=== PATIENT | male | born 2005 | race Caucasian/White ===

== ENCOUNTER 2023-05-14 16:50 | Inpatient (IN) ==
[2023-05-14] MEDS ORDERED: ONDANSETRON INJ 2 MG/ML 2 ML VIAL IV STA (17:25)
[2023-05-14] MEDS ORDERED: SODIUM CHLORIDE 0.9% 500 ML IV SCH (17:30)
--- NOTE | 2023-05-14 17:44 | Emergency Department Note ---
Impression & Plan Drug overdose, Depression with suicidal ideation, Suicide gesture ED Provider Note NAME: TAVO BRITTON AGE: 17 SEX: M : 2005 ARRIVES VIA: Ambulance INFORMANT: Patient, police ED PROVIDER(S): Elvis Quinteros DO CHIEF COMPLAINT: Overdose HPI: The patient is a 17-year-old male who presented to the emergency department for an evaluation of overdose and suicidal ideation with gesture. The patient states that he has been having suicidal ideation since yesterday. He took an overdose of his medication. The patient has a Lexapro at home. He has varying doses. He started at 4:15 PM and started taking 1 pill every minute. This ended at approximately 4:45 PM. The patient thinks he took a total of 30 tablets. This was calculated to be 425 mg total. Again the patient's last dose that he took was at 4:45 PM. The patient has had episodes of nausea vomiting. He called 911 and arrived at the emergency department with police. The patient states he has a history of cutting in the past but never anything this serious. ROS: See above HPI for pertinent positives & negatives. A total of 10 systems reviewed and were otherwise negative. PAST MEDICAL HISTORY: See Below PAST SURGICAL HISTORY: See Below FAMILY HISTORY: See Below SOCIAL HISTORY: See Below HOME MEDICATIONS: See Below ALLERGIES: See Below VITALS: See Below PHYSICAL EXAMINATION: GENERAL: The patient is awake and alert. He appears guarded. EYES: The conjunctivae are clear. The pupils are round and reactive. EARS, NOSE, MOUTH AND THROAT: The nose is without any evidence of any deformity. NECK: The neck is nontender and supple. RESPIRATORY: Normal respiratory effort is noted there is no evidence of wheezing rhonchi or rales CARDIOVASCULAR: Regular rate and rhythm noted there no murmurs rubs or gallops normal S1 normal S2. GASTROINTESTINAL: The abdomen is soft. Abdomen is nontender MUSCULOSKELETAL/EXTREMITIES: There is no evidence of gross deformity full range of motion is noted in the hips and shoulders. SKIN: There is no obvious evidence of any rash. There are no petechiae, pallor or cyanosis noted. NEUROLOGIC: Patient is awake alert and oriented x3 strength is symmetric patellar reflexes are 2+ bilaterally PSYCH: The patient makes poor eye contact mostly evaluation. His affect is very flat. The patient is currently admitting that he took the medications in an attempt to kill himself. MEDICAL DECISION MAKING: The patient is a 17-year-old male who presented to the emergency department after taking multiple doses of Lexapro in an attempt to harm himself. The patient presented with episodes of emesis. He was observed in the emergency department and had multiple reevaluations. I discussed the patient's laboratory studies with him as well as his parents. Given the patient's findings at this time and at the recommendation of poison control [facility] have agreed to evaluate the patient in the emergency department for further management and disposition. The patient may require further cardiac monitoring as well as seizure precautions. Triage Nursing notes reviewed. Prior medical records reviewed Vital Signs: reviewed and remarkable for no significant abnormalities Differential diagnosis: Mood disorder, infection, hypoglycemia, electrolyte abnormalities, cardiac sources, intracerebral event, toxicologic, trauma, neurologic, as well as other pathologies. ER treatment provided: See below Diagnostics interpreted by me: ECG: EKG was obtained in the emergency department. My interpretation is normal sinus rhythm at 83 bpm. There is no ectopy. There is no acute ST segment abnormalities noted. QRS duration was 100 ms. QTc was 423 ms. No previous tracing was available. Cardiac Monitoring: An order was placed for continuous cardiac monitoring. The monitor shows a rate of 87 bpm with sinus rhythm. Laboratory studies: As stated above and show below. Imaging studies: See below. Consultation(s): This case was discussed with the Poison Control Center. Recommendations were followed This case was discussed with Dr. Chun who [facility] Past Med/Surg History Social History Smoking Status: Never smoker Preferred Language: Armenian Feels Safe at Home: Yes Allergies Allergies Allergy/AdvReac Type Severity Reaction Status Date / Time No Known Allergies Allergy Unverified 05/14/23 17:49 Home Meds Home Medications Medication Instructions Recorded Confirmed escitalopram oxalate 20 mg tablet 20 mg PO DAILY 05/14/23 05/14/23 (Lexapro) Results & Data (ED) Vital Signs Vital Signs - 24 hr 05/14/23 16:45 05/14/23 16:51 05/14/23 17:25 Temperature 37.3 C Temperature Source Oral Pulse Rate 89 77 Pulse Rate from SpO2 Sensor Pulse Rhythm Regular Irregular Pulse Strength Normal Respiratory Rate 18 Respiratory Effort / Characteristics Non-Labored Spontaneous Respiratory Depth Normal Respiratory Pattern Regular Blood Pressure 124/81 Blood Pressure Mean 95 Pulse Oximetry 99 97 97 Oxygen Delivery Method Room Air Room Air Room Air Sepsis Recent Fever Within 48 Hours No Sepsis New/Unexplained Change in Mental Status No Sepsis Action Taken by Nursing No Action Required 05/14/23 17:30 05/14/23 17:30 05/14/23 17:30 Temperature Temperature Source Pulse Rate 85 82 Pulse Rate from SpO2 Sensor 83 Pulse Rhythm Pulse Strength Respiratory Rate 24 Respiratory Effort / Characteristics Respiratory Depth Respiratory Pattern Blood Pressure 132/77 Blood Pressure Mean 85 Pulse Oximetry 96 Oxygen Delivery Method Room Air Sepsis Recent Fever Within 48 Hours Sepsis New/Unexplained Change in Mental Status Sepsis Action Taken by Nursing 05/14/23 18:00 05/14/23 18:00 05/14/23 18:30 Temperature Temperature Source Pulse Rate 86 Pulse Rate from SpO2 Sensor 87 Pulse Rhythm Pulse Strength Respiratory Rate 16 Respiratory Effort / Characteristics Respiratory Depth Respiratory Pattern Blood Pressure 118/73 121/72 Blood Pressure Mean 102 87 Pulse Oximetry 98 Oxygen Delivery Method Room Air Sepsis Recent Fever Within 48 Hours Sepsis New/Unexplained Change in Mental Status Sepsis Action Taken by Nursing 05/14/23 18:30 05/14/23 19:00 05/14/23 19:00 Temperature Temperature Source Pulse Rate 89 87 Pulse Rate from SpO2 Sensor 87 87 Pulse Rhythm Pulse Strength Respiratory Rate 16 19 Respiratory Effort / Characteristics Respiratory Depth Respiratory Pattern Blood Pressure 120/75 Blood Pressure Mean 92 Pulse Oximetry 98 96 Oxygen Delivery Method Room Air Room Air Sepsis Recent Fever Within 48 Hours Sepsis New/Unexplained Change in Mental Status Sepsis Action Taken by Custodial Medications Current Medication List: was personally reviewed by me Laboratory Data Attestation: I reviewed the patient's lab results. 05/14/23 17:20 05/14/23 17:20 Lab Results 05/14/23 05/14/23 Range/Units 17:20 19:20 WBC 6.76 (4.8-10.8) K/ul RBC 5.44 (4.70-6.10) M/uL Hgb 15.8 (14.0-18.0) g/dl Hct 47.2 (42.0-52.0) % MCV 86.8 (80.0-100.0) fL MCH 29.0 (25.0-34.0) pg MCHC 33.5 (32.0-36.0) g/dL RDW Std Deviation 37.2 (36.4-46.3) fL RDW Coeff of Teresa 11.7 (11.5-14.5) % Plt Count 241 (130-400) K/uL MPV 9.9 (9.4-12.4) fL Immature Gran % (Auto) 0.4 % Neut % (Auto) 48.5 % Lymph % (Auto) 41.1 % [place] % (Auto) 7.8 % Eos % (Auto) 1.6 % Baso % (Auto) 0.6 % Neut # (Auto) 3.27 (1.40-6.50) K/uL Lymph # (Auto) 2.78 (1.20-3.40) K/uL [place] # (Auto) 0.53 (0.11-0.59) K/uL Eos # (Auto) 0.11 (0.00-0.50) K/uL Baso # (Auto) 0.04 (0.00-0.20) K/uL Immature Gran # (Auto) 0.03 (0.01-0.20) K/uL PT 10.6 (9.0-12.0) Seconds INR 1.0 (0.9-1.1) APTT 25 (21-31) Seconds PTT Ratio 0.9 Sodium 136 (136-145) mmol/L Potassium 3.9 (3.5-5.1) mmol/L Chloride 102 (98-107) mmol/L Carbon Dioxide 25 (21-32) mmol/L Anion Gap 9 (3-11) BUN 16 (6-23) mg/dl Creatinine 0.83 (0.6-1.4) mg/dl Est Cr Clr Drug Dosing 176.2 ml/min Est GFR ( Amer) 147.8 ml/min Est GFR (Non-Af Amer) 127.6 ml/min BUN/Creatinine Ratio 19.3 (10-20) Glucose 95 (70-99(Fasting)) mg/dl Calcium 9.3 (8.6-10.3) mg/dl Magnesium 2.0 (1.7-2.4) mg/dl Total Bilirubin 0.4 (0.2-1.0) mg/dl AST 18 (13-39) U/L ALT 18 (7-52) U/L Alkaline Phosphatase 56 (34-104) U/L Total Creatine Kinase 105 (30-223) U/L Troponin I High Sens < 2.3 (0-20) pg/ml Total Protein 7.5 (6.0-8.3) gm/dl Albumin 4.5 (3.4-5.0) gm/dl Globulin 3.0 (2.5-4.0) gm/dl Albumin/Globulin Ratio 1.5 (0.9-2) Lipase 32 (11-82) U/L Urine Color Yellow Urine Appearance Clear (Clear) Urine pH 6.0 (4.5-7.5) Ur Specific [place] 1.016 (1.000-1.030) Urine Protein Negative (Negative) Urine Glucose (UA) Negative (Negative) Urine Ketones Negative (Negative) Urine Blood Negative (Negative) Urine Nitrite Negative (Negative) Urine Bilirubin Negative (Negative) Urine Urobilinogen Negative (Negative) Ur Leukocyte Esterase Negative (Negative) Salicylates < 3.0 L (3.0-30) mg/dl Acetaminophen < 3 L (10-30) ug/ml Ethyl Alcohol mg/dL < 10.0 (<10.0) mg/dl SARS-CoV-2, RNA, NAAT NEGATIVE (NEGATIVE) Administered Medications Discontinued Medications Sodium Chloride (Nss) 500 mls @ 999 mls/hr IV .Q31M GOLDIE Stop: 05/14/23 18:00 Last Infusion: 05/14/23 18:04 Dose: Infused Documented By: Admin: 05/14/23 17:33 Dose: 999 mls/hr Documented By: RANJANA Ondansetron HCl (Ondansetron Inj 2 Mg/Ml 2 Ml Vial) 4 mg IV NOW STA Stop: 05/14/23 17:26 Last Admin: 05/14/23 17:33 Dose: 4 mg Documented By: RANJANA Discharge Plan Visit Data Chief Complaint: Overdose (Intentional) Stated Complaint: OVERDOSE, MHID ED Provider: Elvis Quinteros Discharge Problem: Drug overdose, Depression with suicidal ideation, Suicide gesture Patient Disposition: Being Evaluated by Hospitalist Forms Stand Alone Forms: [facility], Suicide Prevention Resources Prescriptions Prescriptions: No Action escitalopram oxalate [Lexapro] 20 mg Tablet 20 mg PO DAILY Referrals Referrals: PCP,NO [Primary Care Provider] - Discharge Problem: Drug overdose Qualifiers: Encounter type: initial encounter Injury intent: intentional self-harm Q ualified Code(s): T50.902A - Poisoning by unspecified drugs, medicaments and biological substances, intentional self-harm, initial encounter Suicide gesture Qualifiers: Encounter type: initial encounter Qualified Code(s): X83.8XXA - Intentional self-harm by other specified means, initial encounter
[2023-05-14 17:59] LABS: Basophils # (auto) 0.04 K/uL (0.00-0.20); Basophils % (auto) 0.6 %; Eosinophils # (auto) 0.11 K/uL (0.00-0.50); Eosinophils % (auto) 1.6 %; Hematocrit (blood only) 47.2 % (42.0-52.0); Hemoglobin 15.8 g/dl (14.0-18.0); Immature Granulocytes # (auto) 0.03 K/uL (0.01-0.20); Immature Granulocytes % (auto) 0.4 %; Lymphocytes # (auto) 2.78 K/uL (1.20-3.40); Lymphocytes % (auto) 41.1 %; Mean Corpuscular Hgb Conc 33.5 g/dL (32.0-36.0); Mean Corpuscular Volume 86.8 fL (80.0-100.0); Mean Platelet Volume 9.9 fL (9.4-12.4); Monocytes # (auto) 0.53 K/uL (0.11-0.59); Monocytes % (auto) 7.8 %; Neutrophils # (auto) 3.27 K/uL (1.40-6.50); Neutrophils % (auto) 48.5 %; Platelet Count 241 K/uL (130-400); RDW Coefficient of Variation 11.7 % (11.5-14.5); RDW Standard Deviation 37.2 fL (36.4-46.3); Red Blood Count 5.44 M/uL (4.70-6.10); White Blood Count 6.76 K/ul (4.8-10.8)
[2023-05-14 18:18] LABS: Acetaminophen < 3 ug/ml (10-30); Salicylate < 3.0 mg/dl (3.0-30)
[2023-05-14 18:31] LABS: Partial Thromboplastin Ratio 0.9; Partial Thromboplastin Time 25 Seconds (21-31); Prothrombin Time 10.6 Seconds (9.0-12.0)
[2023-05-14 18:34] LABS: Albumin Level 4.5 gm/dl (3.4-5.0); Anion Gap 9 (3-11); Bilirubin,Total 0.4 mg/dl (0.2-1.0); Calcium 9.3 mg/dl (8.6-10.3); Carbon Dioxide 25 mmol/L (21-32); Chloride 102 mmol/L (98-107); Potassium 3.9 mmol/L (3.5-5.1); Sodium 136 mmol/L (136-145)
[2023-05-14 18:40] LABS: Alanine Aminotransferase 18 U/L (7-52); Albumin Globulin Ratio 1.5 (0.9-2); Alkaline Phosphatase 56 U/L (34-104); Aspartate Aminotransferase 18 U/L (13-39); BUN Creatinine Ratio 19.3 (10-20); Blood Urea Nitrogen 16 mg/dl (6-23); Creatine Kinase 105 U/L (30-223); Creatinine Clr Calc Pharmacy 176.2 ml/min; Est GFR (African American) 147.8 ml/min; Est GFR (Non-African American) 127.6 ml/min; Glucose 95 mg/dl (70-99(Fasting)); Lipase 32 U/L (11-82); Total Protein 7.5 gm/dl (6.0-8.3)
[2023-05-14 18:45] LABS: Troponin I High Sensitivity < 2.3 pg/ml (0-20)
[2023-05-14 19:44] LABS: Appearance Urine Clear (Clear); Bilirubin Urine Negative (Negative); Blood Urine Negative (Negative); Color Urine Yellow; Glucose Urine UA Negative (Negative); Ketones Urine Negative (Negative); Leukocyte Esterase Urine Negative (Negative); Nitrite Urine Negative (Negative); Protein Urine Negative (Negative); Specific Gravity Urine 1.016 (1.000-1.030); Urobilinogen Urine Negative (Negative)
--- NOTE | 2023-05-14 20:20 | History & Physical Report ---
Date of Service May 14, 2023 Assessment & Plan (1) Suicide gesture: (2) Depression with suicidal ideation: (3) SSRI overdose: Plan Intentional SSRI overdose/depression with suicidal ideation/suicide gesture- Admit to hospitalist service to monitored bed Hold any further Lexapro dosing No signs of ectopy on examination and no prolongation of QT interval on EKG He is status post 500 cc normal saline in the ED Based on NSS + KCl 20 mill equivalents at 80 mL/h x 1 L Zofran 4 mg IV every 6 hours as needed for One-to-one observation Consult psychiatry History of Present Illness Chief Complaint: The patient is brought to the emergency department via ambulance for evaluation of suicidal ideation after having taken an intentional overdose of 30 Lexapro 20 mg tablets over a 30-minute interval from 4: 15-4:45 PM this afternoon Primary Care Provider: SEN PCP The patient is a 17-year-old male with a past medical history of depression, who was brought to the emergency department after a suicide attempt where he took Lexapro 20 mg tablets, 1 every minute from 4:15 to 4:45 PM for total of 30 ingested. The patient's main complaint in the emergency department is stomach upset, and reports a few episodes of nausea and vomiting. 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 Physical Required: No Beliefs That Will Affect Care: None Current Living Situation: Other Current Living Situation Comment: With roomates at U Feels Safe at Home: Yes Assistive Devices: Glasses Review of Systems Review of Systems: The patient denies chest pain, palpitations, shortness of breath, dyspnea on exertion, cough, lower extremity swelling, sore throat, fevers, chills, sweats, diarrhea , constipation, blood in urine or stool, dysuria, urinary frequency or urgency, lightheadedness, dizziness, headache, memory loss, loss of consciousness, rash, abnormal bruising or bleeding, imbalance, focal or generalized weakness, numbness or tingling in arms or legs, generalized arthralgias or myalgias, back or neck pain, or night sweats. The review of systems is otherwise negative other than for that already noted above, and at least 10 systems have been reviewed. Physical Exam Physical Exam: The patient is awake, alert and oriented 3, well developed and well nourished, normocephalic and atraumatic, lying in bed and in no acute distress. HEENT--PERRL, EOMI, mucous membranes and oropharynx normal. Neck--supple. No JVD. No bruits. Thyroid normal, trachea midline, no adenopathy. Heart--normal S1 and S2. No murmurs, rubs or gallops. Lungs--clear bilaterally, no respiratory distress, no accessory muscle use. Abdomen--normal bowel sounds and soft. Nontender. Nondistended, no hernias or masses, no organomegaly. Extremities--no cyanosis or clubbing. No edema. Dermatologic--normal skin turgor, normal color, no abnormal lymph nodes, no rash. Neurologic--cranial nerves II through XII grossly intact. Rheumatologic--normal range of motion. Psychiatric--normal affect. Results & Data Results & Data Vital Signs (Past 12 Hours) Vital Signs Temp Pulse Resp BP Pulse Ox O2 Del Method 05/14/23 19:00 87 19 96 Room Air 05/14/23 19:00 120/75 05/14/23 18:30 89 16 98 Room Air 05/14/23 18:30 121/72 05/14/23 18:00 86 16 98 Room Air 05/14/23 18:00 118/73 05/14/23 17:30 82 24 96 Room Air 05/14/23 17:30 132/77 05/14/23 17:30 85 05/14/23 17:25 77 97 Room Air 05/14/23 16:51 97 Room Air 05/14/23 16:45 37.3 C 89 18 124/81 99 Room Air Laboratory Results Laboratory Results WBC 6.76 K/ul (4.8-10.8) 05/14/23 17:20 RBC 5.44 M/uL (4.70-6.10) 05/14/23 17:20 Hgb 15.8 g/dl (14.0-18.0) 05/14/23 17:20 Hct 47.2 % (42.0-52.0) 05/14/23 17:20 MCV 86.8 fL (80.0-100.0) 05/14/23 17:20 MCH 29.0 pg (25.0-34.0) 05/14/23 17:20 MCHC 33.5 g/dL (32.0-36.0) 05/14/23 17:20 RDW Std Deviation 37.2 fL (36.4-46.3) 05/14/23 17: RDW Coeff of Teresa 11.7 % (11.5-14.5) 05/14/23 17: Plt Count 241 K/uL (130-400) 05/14/23 17:20 MPV 9.9 fL (9.4-12.4) 05/14/23 17:20 Immature Gran % (Auto) 0.4 % 05/14/23 17:20 Neut % (Auto) 48.5 % 05/14/23 17:20 Lymph % (Auto) 41.1 % 05/14/23 17:20 [place] % (Auto) 7.8 % 05/14/23 17:20 Eos % (Auto) 1.6 % 05/14/23 17:20 Baso % (Auto) 0.6 % 05/14/23 17:20 Neut # (Auto) 3.27 K/uL (1.40-6.50) 05/14/23 17:20 Lymph # (Auto) 2.78 K/uL (1.20-3.40) 05/14/23 17:20 [place] # (Auto) 0.53 K/uL (0.11-0.59) 05/14/23 17:20 Eos # (Auto) 0.11 K/uL (0.00-0.50) 05/14/23 17:20 Baso # (Auto) 0.04 K/uL (0.00-0.20) 05/14/23 17:20 Immature Gran # (Auto) 0.03 K/uL (0.01-0.20) 05/14/23 17:20 PT 10.6 Seconds (9.0-12.0) 05/14/23 17:20 INR 1.0 (0.9-1.1) 05/14/23 17:20 APTT 25 Seconds (21-31) 05/14/23 17:20 PTT Ratio 0.9 05/14/23 17:20 Sodium 136 mmol/L (136-145) 05/14/23 17:20 Potassium 3.9 mmol/L (3.5-5.1) 05/14/23 17:20 Chloride 102 mmol/L (98-107) 05/14/23 17:20 Carbon Dioxide 25 mmol/L (21-32) 05/14/23 17:20 Anion Gap 9 (3-11) 05/14/23 17:20 BUN 16 mg/dl (6-23) 05/14/23 17:20 Creatinine 0.83 mg/dl (0.6-1.4) 05/14/23 17:20 Est Cr Clr Drug Dosing 176.2 ml/min 05/14/23 17:20 Est GFR ( Amer) 147.8 ml/min 05/14/23 17:20 Est GFR (Non-Af Amer) 127.6 ml/min 05/14/23 17:20 BUN/Creatinine Ratio 19.3 (10-20) 05/14/23 17:20 Glucose 95 mg/dl (70-99(Fasting)) 05/14/23 17:20 Calcium 9.3 mg/dl (8.6-10.3) 05/14/23 17:20 Magnesium 2.0 mg/dl (1.7-2.4) 05/14/23 17:20 Total Bilirubin 0.4 mg/dl (0.2-1.0) 05/14/23 17:20 AST 18 U/L (13-39) 05/14/23 17:20 ALT 18 U/L (7-52) 05/14/23 17:20 Alkaline Phosphatase 56 U/L (34-104) 05/14/23 17:20 Total Creatine Kinase 105 U/L (30-223) 05/14/23 17:20 Troponin I High Sens < 2.3 pg/ml (0-20) 05/14/23 17:20 Total Protein 7.5 gm/dl (6.0-8.3) 05/14/23 17:20 Albumin 4.5 gm/dl (3.4-5.0) 05/14/23 17:20 Globulin 3.0 gm/dl (2.5-4.0) 05/14/23 17:20 Albumin/Globulin Ratio 1.5 (0.9-2) 05/14/23 17:20 Lipase 32 U/L (11-82) 05/14/23 17:20 Urine Color Yellow 05/14/23 19:20 Urine Appearance Clear (Clear) 05/14/23 19:20 Urine pH 6.0 (4.5-7.5) 05/14/23 19:20 Ur Specific [place] 1.016 (1.000-1.030) 05/14/23 19:20 Urine Protein Negative (Negative) 05/14/23 19:20 Urine Glucose (UA) Negative (Negative) 05/14/23 19:20 Urine Ketones Negative (Negative) 05/14/23 19:20 Urine Blood Negative (Negative) 05/14/23 19:20 Urine Nitrite Negative (Negative) 05/14/23 19:20 Urine Bilirubin Negative (Negative) 05/14/23 19:20 Urine Urobilinogen Negative (Negative) 05/14/23 19:20 Ur Leukocyte Esterase Negative (Negative) 05/14/23 19:20 Salicylates < 3.0 mg/dl (3.0-30) L 05/14/23 17:20 Urine Opiates Screen Neg (Neg) 05/14/23 19:20 Ur Methadone, Qual Neg (Neg) 05/14/23 19:20 Acetaminophen < 3 ug/ml (10-30) L 05/14/23 17:20 Urine Barbiturates Neg (Neg) 05/14/23 19:20 Ur Phencyclidine (PCP) Neg (Neg) 05/14/23 19:20 U Amphetamin/Meth Scrn Neg (Neg) 05/14/23 19:20 MDMA (Ecstasy) Screen Neg (Neg) 05/14/23 19:20 U Benzodiazepines Scrn Neg (Neg) 05/14/23 19:20 Ur Cocaine Metabolite Neg (Neg) 05/14/23 19:20 U Marijuana (THC) Screen Neg (Neg) 05/14/23 19:20 Ethyl Alcohol mg/dL < 10.0 mg/dl (<10.0) 05/14/23 17:20 SARS-CoV-2, RNA, NAAT NEGATIVE (NEGATIVE) 05/14/23 17:20 Code Status & VTE Plan Code Status Full code VTE Prophylaxis Plan VTE Prophylaxis will be ordered: Yes PG Care Time/CCT Total # of Minutes Spent Total Time Spent with Patient: Total time spent is greater than 50% in coordination of care (as documented) at patient's floor/unit and/or counseling patient: Coding Level of Care Code 60823 INT INP/OBS CARE MIN Diagnoses Suicide gesture X83.8XXA Encounter type: initial encounter Depression with suicidal ideation F32.A; R45.851 SSRI overdose T43.221A (1) Suicide gesture Encounter type: initial encounter Qualified Code(s): X83.8XXA - Intentional self-harm by other specified means, initial encounter
[2023-05-14 20:29] LABS: Amphetamines+Metham, Urine Neg (Neg); Barbiturates, Urine Neg (Neg); Benzodiazepine, Urine Neg (Neg); Cocaine, Urine Neg (Neg); MDMA (Ecstacy), Urine Neg (Neg); Marijuana, Urine Neg (Neg); Methadone, Urine Neg (Neg); Opiate, Urine Neg (Neg); Phencyclidine, Urine Neg (Neg)
[2023-05-14] MEDS ORDERED: NSS + 20MEQ KCL 20 MEQ/1,000 ML BAG IV SCH (22:52)
[2023-05-14] MEDS ORDERED: ONDANSETRON INJ 2 MG/ML 2 ML VIAL IV PRN (22:52)
[2023-05-15 07:18] LABS: Basophils # (auto) 0.03 K/uL (0.00-0.20); Basophils % (auto) 0.4 %; Eosinophils # (auto) 0.09 K/uL (0.00-0.50); Eosinophils % (auto) 1.1 %; Hematocrit (blood only) 44.4 % (42.0-52.0); Hemoglobin 15.3 g/dl (14.0-18.0); Immature Granulocytes # (auto) 0.03 K/uL (0.01-0.20); Immature Granulocytes % (auto) 0.4 %; Lymphocytes # (auto) 3.33 K/uL (1.20-3.40); Mean Corpuscular Hemoglobin 29.7 pg (25.0-34.0); Mean Corpuscular Hgb Conc 34.5 g/dL (32.0-36.0); Mean Platelet Volume 9.6 fL (9.4-12.4); Monocytes # (auto) 0.65 K/uL (0.11-0.59); Monocytes % (auto) 7.6 %; Neutrophils # (auto) 4.41 K/uL (1.40-6.50); Neutrophils % (auto) 51.5 %; Platelet Count 240 K/uL (130-400); RDW Coefficient of Variation 11.5 % (11.5-14.5); RDW Standard Deviation 36.4 fL (36.4-46.3); Red Blood Count 5.16 M/uL (4.70-6.10); White Blood Count 8.54 K/ul (4.8-10.8)
--- NOTE | 2023-05-15 07:48 | Electrocardiogram Report ---
Test Reason : Blood Pressure : / mmHG Vent. Rate : 083 BPM Atrial Rate : 083 BPM P-R Int : 166 ms QRS Dur : 100 ms QT Int : 360 ms P-R-T Axes : 033 076 031 degrees QTc Int : 423 ms Normal sinus rhythm Normal ECG No previous ECGs available Confirmed by Crow Land ([id number]) on 05/15/2023 7:47:59 AM Referred By: REFERRED SELF Confirmed By:Andrey Land
[2023-05-15 07:49] LABS: Albumin Globulin Ratio 1.6 (0.9-2); Albumin Level 4.3 gm/dl (3.4-5.0); BUN Creatinine Ratio 13.8 (10-20); Bilirubin,Total 0.7 mg/dl (0.2-1.0); Calcium 9.3 mg/dl (8.6-10.3); Creatinine Clr Calc Pharmacy 166.4 ml/min; Est GFR (Non-African American) 125.1 ml/min; Globulin 2.7 gm/dl (2.5-4.0); Magnesium 2.1 mg/dl (1.7-2.4); Potassium 4.1 mmol/L (3.5-5.1)
--- NOTE | 2023-05-15 12:48 | Electrocardiogram Report ---
Test Reason : Blood Pressure : / mmHG Vent. Rate : 067 BPM Atrial Rate : 067 BPM P-R Int : 158 ms QRS Dur : 104 ms QT Int : 414 ms P-R-T Axes : -09 081 039 degrees QTc Int : 437 ms Normal sinus rhythm Normal ECG When compared with ECG of 14-MAY-2023 17:15, No significant change was found Confirmed by Crow Land ([id number]) on 05/15/2023 12:48:41 PM Referred By: REFERRED SELF Confirmed By:Andrey Land
--- NOTE | 2023-05-15 15:22 | Hospitalist Progress Note ---
Date of Service May 15, 2023 Assessment & Plan Admission and Anticipated Discharge Date Admission Date: May 14, 2023 Results & Data Results & Data Vital Signs (Past 12 Hours) Vital Signs Temp Pulse Pulse Resp BP Pulse Ox O2 Del Method 05/15/23 07:11 65 05/15/23 04:23 36.9 C 66 18 114/74 97 Room Air
--- NOTE | 2023-05-15 17:04 | Communication Note ---
Date of Service: May 15, 2023 Based on my review of the chart and having reviewed clinical information with the psychiatric liaison nurse, I believe pt requires psychiatric inpatient treatment and would be appropriate for transfer to the [facility] and that it would be to his clinical advantage to effect such a transfer without awaiting our completing a full psychiatric consultation.
--- NOTE | 2023-05-15 17:40 | Discharge Summary ---
Date of Service May 15, 2023 Admission HPI Per Admitting Provider The patient is a 17-year-old male with a past medical history of depression, who was brought to the emergency department after a suicide attempt where he took Lexapro 20 mg tablets, 1 every minute from 4:15 to 4:45 PM for total of 30 ingested. The patient's main complaint in the emergency department is stomach upset, and reports a few episodes of nausea and vomiting. He is accompanied by his mother, who is in exam room at the time of examination Admission Exam Per Admitting Provider The patient is awake, alert and oriented 3, well developed and well nourished, normocephalic and atraumatic, lying in bed and in no acute distress. HEENT--PERRL, EOMI, mucous membranes and oropharynx normal. Neck--supple. No JVD. No bruits. Thyroid normal, trachea midline, no adenopathy. Heart--normal S1 and S2. No murmurs, rubs or gallops. Lungs--clear bilaterally, no respiratory distress, no accessory muscle use. Abdomen--normal bowel sounds and soft. Nontender. Nondistended, no hernias or masses, no organomegaly. Extremities--no cyanosis or clubbing. No edema. Dermatologic--normal skin turgor, normal color, no abnormal lymph nodes, no r brian. Neurologic--cranial nerves II through XII grossly intact. Rheumatologic--normal range of motion. Psychiatric--normal affect. Principal Diagnosis intentional OD Discharge Exam Constitutional: well appearing, no acute distress HEENT: normocephalic, no conjunctival injection CV: regular rhythm, regular rate, no murmur, no LE edema Respiratory: Clear to auscultation bilaterally. No rhonchi, wheezes, or crack les. No increased work of breathing GI: soft, nondistended, positive bowel sounds MSK: no gross deformities noted Skin: warm, dry, no rashes Neuro: alert, oriented, no FND noted Discharge Data Allergies Allergy/AdvReac Type Severity Reaction Status Date / Time No Known Allergies Allergy Unverified 05/14/23 17:49 Consultations 05/14/23 20:00 ED Decision to Admit Stat 05/14/23 20:19 Consult Psychiatry Routine 05/15/23 00:46 Consult Behavioral Health Liaison Routine Hospital Course (1) SSRI overdose: Pt is a 17 yo male with PMH of depression presenting to the hospital after an intentional lexapro OD. Intentional OD - pt w/o any further symptoms; EKG WNL, lab work WNL - pt stable from a medical stand point - psych consulted; recommended inpatient tx - transfer to [facility] upon discharge - further management per psych Diet: safe tray Code: full DVT ppx: deferred, ambulatory Dispo: [facility] (2) Depression with suicidal ideation: Total Time Total Time Spent Total Time Spent (In Minutes): <30 Discharge Plan Discharge Items Patient Disposition: Transfer Behavioral Health Fac Reason For Visit: INTENTIONAL LEXAPRO OVERDOSE Discharge Diagnosis: intentional OD Activity: Per Instructions section Non-emergency contact: Primary Care Provider and Psychiatrist Call non-emergency contact if: you have any medication questions and your symptoms worsen Follow-up/Referrals: PCP,NO [Primary Care Provider] - Diet: Regular Addtl Attending Provider Instructions: Pt is a 17 yo male with PMH of depression presenting to the hospital after an intentional lexapro OD. Intentional OD - pt w/o any further symptoms; EKG WNL, lab work WNL - pt stable from a medical stand point - psych consulted; recommended inpatient tx - transfer to [facility] upon discharge - further management per psychiatry Diet: safe tray Code: full DVT ppx: deferred, ambulatory Dispo: [facility] Pending Studies at Discharge: No Stand-Alone Forms: My [facility] Medications and DC Order Prescriptions: Discontinued escitalopram oxalate [Lexapro] 20 mg Tablet 20 mg PO DAILY Discharge Orders: Discharge Order (Routine); Ordered 05/15/23 Ordered By: Danita Jacques Admission Data Admit Date/Time: 05/14/23 20:19 Attending Provider: Jose Carlos Earl Admit Provider: Attila Chun Primary Care Provider: PCP,NO Other Providers: Nakia Mcdonald; Vannessa Thomson; Anjel Connelly; Andriy Waterman; Attila Chun Supervising Physician Co-Signing Physician Notes I personally examined the patient and verified all chacon points of history and exam, discussed case, and agree with decision making with Dr Jacques physically feeling OK. family present at bedside. vitals noted nad heent nc at mmm breathing unlabored no accessory muscles good effort depression/SI - for inpatient psych Resident Activity Tracking Resident Involvement: Resident Care Provided Care Provided: Adult Hospital Medicine
--- NOTE | 2023-05-15 17:43 | Billing Data ---
Date of Service May 15, 2023 Coding Level of Care Code 75978 IN/OBS DISCH 30 MIN/LESS
== END 2023-05-15 18:37 | DRG 918 ==
LOC: ED 16:50 → EDINP 20:19 → SUATTDRO 20:19 → 2E 23:54 → UNDODISIN 05-15 18:05

== ENCOUNTER 2023-05-15 18:07 | Inpatient (IN) ==
[2023-05-15] MEDS ORDERED: BISMUTH SUBSALICYLATE LIQD 236 ML PO PRN (19:09)
[2023-05-15] MEDS ORDERED: ALUMINUM/MAGNESIUM SUSP 30 ML UDC PO PRN (19:09)
[2023-05-15] MEDS ORDERED: SODIUM CHLORIDE 0.65% NA SOLN 45 ML (OCEAN) PRN (19:09)
[2023-05-15] MEDS ORDERED: hydrOXYzine HCl 25 MG TAB PO PRN (19:09)
[2023-05-15] MEDS ORDERED: ACETAMINOPHEN 325 MG TAB PO PRN (19:09)
[2023-05-15] MEDS ORDERED: MAGNESIUM HYDROXIDE SUSP 30 ML UDC PO PRN (19:09)
[2023-05-16] MEDS: hydrOXYzine HCl 25 MG TAB PO PRN (01:53)
--- NOTE | 2023-05-16 10:53 | History & Physical ---
Date of Service May 16, 2023 Impression / Recommendations Impression 17 y/o M with a years-long history of depression symptoms for which he only recently sought outpatient treatment. He started escitalopram around the time the suicidal thoughts became more prominent and they escalated markedly when the dose was increased, so it's possible that medication may have contributed to the suicidality (which is a known risk of antidepressants in young adults). Pt has prominent melancholic symptoms with "flat" emotions, anhedonia, anergy, and amotivation. Bupropion might be especially helpful via dopaminergic effects. Reviewed rationale for and alternatives to bupropion for depression. Discussion included but was not limited to risk of seizures with excessive doses and the importance of using means such as pill reminders to avoid double-dosing. Overall I spent a total of 96 minutes on the floor for this admission including review of chart records, review of test results, direct evaluation of the patient [id number], counseling the patient, reconciling and ordering medica tion, medication education with the patient, risk assessment, discussion during interdisciplinary treatment rounds, and documentation in the electronic health record. (1) Major depressive disorder, single episode, severe without psychotic features: Plan The patient was admitted to the [facility] ([facility] mental [facility]) on q15 minute checks (behavioral with suicide precautions) for safety.The patient will participate in group, recreational, and milieu therapies and will be offered additional individual and family sessions as clinically appropriate. * start bupropion XL 150 mg daily * In addition to the screening labs ordered in the ED, will order vitamin B12 level, folic acid level, 25-OH vitamin D level to rule out conditions more pertinent to psychiatric symptoms. Inventory Assets Strengths: has local supports, voluntary, good insight, intelligent, attending classes Needs: safety and stabilization, medication adjustment, additional coping skills, increased outpatient services, case management Suicide Risk Level Suicide Risk Level: High-Moderate (q15 min suicide checks) (significant overdose with cavalier disregard whether he lived or ; reports feeling safe here) Risk Factors Assessment Male: Yes : No Do You Have Access To A Gun?: No Health Problems: No Mental Health Diagnoses: Yes Substance Use Disorders: No Previous Attempt: No Family History of Suicide: No Previous Psychiatric Hospitalization: No Protective Factors Assessment : No Responsible for Young Children: No Supportive Family: Yes Psychiatric History Identifying Data TAVO BRITTON is a 17-year-old M who currently lives in [place] with [], has a history of [], and was admitted on 05/15/23 18:38 on a 201 voluntary commitment for overdose. Chief Complaint "I don't care about anything". History of Present Illness As part of a thorough review of the available medical records, I have read and confirmed the following note by the ED physician: "The patient is a 17-year-old male who presented to the emergency department for an evaluation of overdose and suicidal ideation with gesture. The patient states that he has been having suicidal ideation since yesterday. He took an overdose of his medication. The patient has a Lexapro at home. He has varying doses. He started at 4:15 PM and started taking 1 pill every minute. This ended at approximately 4:45 PM. The patient thinks he took a total of 30 tablets. This was calculated to be 425 mg total. Again the patient's last dose that he took was at 4:45 PM. The patient has had episodes of nausea vomiting. He called 911 and arrived at the emergency department with police. The patient states he has a history of cutting in the past but never anything this serious." the following note by the hospitalist: "The patient is a 17-year-old male with a past medical history of depression, who was brought to the emergency department after a suicide attempt where he took Lexapro 20 mg tablets, 1 every minute from 4:15 to 4:45 PM for total of 30 ingested. The patient's main complaint in the emergency department is stomach upset, and reports a few episodes of nausea and vomiting." the following notes by the ED psychiatric case supervisor: "Tavo arrives to the ED via EMS for intentional overdose. He arrives on a [address] warrant completed by Officer Chelsea Ward with [place] [employer]: "On 05/14/23 at approximately 1623 hours [address] [facility] [address][id number], [facility] and I responded to a call of a male that overdosed on medication for the purpose of killing himself. We found Tavo Garcia Milling at the [facility] and he stated in my presence that he purposely took a substantial amount of his prescribed medication in an attempt to kill himself." "Tavo admits to intentionally overdosing on his Lexapro today. Tavo is prescribed this by a telehealth [facility] called [facility]. He was prescribed 10mg initially and took that for two weeks. His dosage was then increased to 20mg. His affect is flat. He cannot identify a specific trigger but states that he has been suicidal for at least the past five years. Four years ago, he had what he calls a "not significant" suicide attempt where he wrapped blankets around his neck. 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 He denies difficulties with his schooling. In that regard, he states, "It's kind of the opposite problem. I just don't feel anything." Tavo lives on campus in a dorm with a roommate that he is not close to. He states his family lives locally in [place]. Tavo questioned this case supervisor if he should call his family. He decided that he likely will call them and let them know that he is here. Tavo denies A/V hallucinations, HI, SIB and alcohol/substance use. Medical clearance process explained, Tavo does state that he is voluntary for inpatient psychiatric treatment if this is the recommendation s/p medical clearance." and the following note by the psychiatric liaison nurse: "Met with patient for consult service/initial psychiatric assessment. Patient resting in bed, parents and 1:1 staff at bedside. Parents stepped out of room while liaison completed assessment. Patient is A&Ox4, flat affect with good eye contact. Tavo reports being born in [place], family moved to [place] 6 years ago for educational purposes and then again moved to [place], last year, to be closer to [facility]. 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 Patient reports a history of depression for the past 5 years. He feels he has become apathetic in the last 1-2 years. "My desire to live and my desire to are about the same. I don't really care either way". Patient reports attempting to suffocate self with a blanket 4 years ago; he reported this to parents ~1 year later during an argument. He denies SIB. He denies substance/ETOH use. He recently began telehealth with a provider through [facility] , Dr. Osborne and was started on Lexapro "3 weeks ago", dose was increased last week. Patient utilized individual therapy through [facility] for 6 sessions and then was placed in a group that meets once per week; group will restart in June. Patient reports he started to formulate a suicide plan on Tuesday, he chose a day and time. He reported reading that 800mg could be a deadly dose. He states, "I had 47 tablets and did not want it to be impulsiv e, so I took 1 tablet every minute to essentially give my self 47 chances to not kill my self. I had my phone beside me with 911 ready to be called. I only got to 30 tablets because I wasn't feeling any different", he then called parents after calling 911. Patient displayed poor insight into his overdose/suicide attempt, denies any stressors or triggers, he also feels he wouldn't need inpatient treatment but agreeable if it is recommended. " Review of the medical record reveals no records prior to his presentation in the ED. Review of pertinent labs reveals they are noncontributory. A urine toxicology screen was negative for all tested substrates. BAL was <10 mg/dL. Pt endorses history, as above, of roughly 5-year history of depressed mood with chronic suicidal thoughts and a very deliberate escitalopram overdose during he took one tablet per minute specifically to reduce the risk of vomiting the medication and not absorbing it as well as to provide opportunities for him to abort the attempt (which he did not do). Despite this, he has minimized reasons that others are concerned about his safety. He doesn't believe he needs psychiatric hospitalization but has been willing to agree to it. He endorses significant depression symptoms including initial and middle insomnia, reduced appetite, poor energy, reduced interest and motivation, trouble concentrating and focusing as well as increasing suicidal thoughts. He is unable to identify any precipitant. He denies much in the way of anxiety symptoms or any symptoms typical of hi. Past Psychiatric History Previous Psych History: recent outpatient treatment at [facility] Current Psychiatric Diagnosis: MDD Outpatient Services: [facility], [facility] Previous Psych Admissions: none Do You Have Access To A Gun?: No History of Previous Suicide Attempt: Yes Allergies Allergy/AdvReac Type Severity Reaction Status Date / Time No Known Allergies Allergy Unverified 05/14/23 17:49 Family History Family History of: None Alcohol History Hx of Alcohol Use Over the Past 12 Months: No AUDIT Total Score: 0 Smoking Use Have You Smoked or Used Tobacco Products in the Last 30 Days: No Smoking Status: Never smoker Substance History Hx of Prescription Med Misuse Over the Past 12 Months: No Hx of Over the Counter Med Misuse Over the Past 12 Months: No Hx of Inhalent Misuse Over the Past 12 Months: No Hx of Organic Substance Use Over the Past 12 Months: No Hx of Illegal Substances/Street Drug Use Over Past 12 Months: No Problems as a Result of Past Substance Use: None Identified Personal History Beliefs That Will Affect Care: None Patient History Medical History (Updated 05/16/23 @ 19:29 by Andriy Waterman MD) Major depressive disorder, single episode, severe without psychotic features Social History Smoking Status: Never smoker Hx Alcohol Use: No Hx Substance Use: No Preferred Language: Icelandic Communication Ability: Effective Buffer Machine Required: No Beliefs That Will Affect Care: None Current Living Situation: Other Current Living Situation Comment: With roomates at [employer] Feels Safe at Home: Yes Gender Identity: Male Assistive Devices: Glasses Review of Systems Psychiatric: + depression, + abnormal sleep pattern, + suicidal ideation and + difficulty concentrating Physical Exam Vital Signs (Past 24 Hours): Last Vital Signs Temp 36.5 C 05/16/23 06:46 Pulse 66 05/16/23 06:46 Resp 16 05/16/23 06:46 BP 107/69 05/16/23 06:46 Pulse Ox 98 05/16/23 06:46 O2 Del Method Room Air 05/16/23 06:46 Exam Statement: A physical exam was performed in the ED for the purposes of medical clearance. I accept that physical as correct and adequate for the purposes of the inpatient physical exam. Results & Data ([facility]) Current Inpatient Medications Current Inpatient Medications: Current Inpatient Medications Acetaminophen (Acetaminophen 325 Mg Tab) 650 mg PO Q4H PRN PRN Reason: Headache or Minor Fever Stop: 06/14/23 19:08 Al Hydrox/Mg Hydrox/Simethicone (Aluminum/Magnesium Susp 30 Ml Udc) 30 ml PO Q4H PRN PRN Reason: GI Upset Stop: 06/14/23 19:08 Bismuth Subsalicylate (Bismuth Subsalicylate Liqd 236 Ml) 15 ml PO PRN PRN PRN Reason: Loose Stool Stop: 06/14/23 19:08 Hydroxyzine HCl (Hydroxyzine Hcl 25 Mg Tab) 50 mg PO HSZ PRN PRN Reason: Insomnia Stop: 06/14/23 19:08 Last Admin: 05/16/23 01:53 Dose: 50 mg Hydroxyzine HCl (Hydroxyzine Hcl 25 Mg Tab) 25 mg PO Q4H PRN PRN Reason: Anxiety Stop: 06/14/23 19:08 Magnesium Hydroxide (Magnesium Hydroxide Susp 30 Ml Udc) 30 ml PO DAILY PRN PRN Reason: Constipation Stop: 06/14/23 19:08 Sodium Chloride (Sodium Chloride 0.65% Na Soln 45 Ml ([place])) 1 - 2 sprays NA PRN PRN PRN Reason: Nasal Dryness/Congestion Stop: 06/14/23 19:08
[2023-05-16 16:31] LABS: Folate (Folic Acid),Ser orPlas > 22.30 ng/ml (>5.38)
[2023-05-16 16:32] LABS: Vitamin B12 582 pg/ml (180-914)
[2023-05-17] MEDS ORDERED: buPROPion XL 150 MG TABCR PO SCH (09:00)
--- NOTE | 2023-05-17 12:09 | Psychiatric Progress Note ---
Date of Service May 17, 2023 Impression / Recommendations Impression 17 y/o M with a years-long history of depression symptoms for which he only recently sought outpatient treatment. He started escitalopram around the time the suicidal thoughts became more prominent and they escalated markedly when the dose was increased, so it's possible that medication may have contributed to the suicidality (which is a known risk of antidepressants in young adults). Pt has prominent melancholic symptoms with "flat" emotions, anhedonia, anergy, and amotivation. 05/17/2023: After I completed my assessment note yesterday, I spent about an hour and a half on the phone with pt's parents, and discussed that call with him today. He expressed surprise that his parents had not expected his suicidal behavior, though he acknowledges he'd only told them about depressed mood and suicidal thoughts but never mentioned intent. They'd indicated symptoms dating back to about a year earlier than pt's report and he's adamant that "it's been 5 years" (though continues to say that he does not view moving to [place] from [facility] that year as a precipitant or contributor and can't identify any other). He acknowledges his mom's report that he weighs himself very often but says he "used to be overweight" and likes to track his weight. He denies having any specific target weight. He asks me if I think he's anxious (which he'd previously told me he's not) and struggled to explain why he would ask me that if he doesn't think he is. Pt has noted no side effects since starting bupropion (1st dose this AM), is somewhat uncertain about increasing tomorrow. When I told him it's entirely up to him and that there's no douglass to increase the dose, he immediately asked me to order 300 mg for tomorrow. Additional labs were noncontributory. 05/16/2023: Bupropion might be especially helpful via dopaminergic effects. Reviewed rationale for and alternatives to bupropion for depression. Discussion included but was not limited to risk of seizures with excessive doses and the importance of using means such as pill reminders to avoid double-dosing. (1) Major depressive disorder, single episode, severe without psychotic features: Plan 05/17/2023: * increase bupropion XL to 300 mg QAM 05/16/2023: The patient was admitted to the [facility] [place] [facility] [place] on q15 minute checks (behavioral with suicide precautions) for safety.The patient will participate in group, recreational, and milieu therapies and will be offered additional individual and family sessions as clinically appropriate. * start bupropion XL 150 mg daily * In addition to the screening labs ordered in the ED, will order vitamin B12 level, folic acid level, 25-OH vitamin D level to rule out conditions more pertinent to psychiatric symptoms. Inventory Assets Strengths: has local supports, voluntary, good insight, intelligent, attending classes Needs: safety and stabilization, medication adjustment, additional coping skills, increased outpatient services, case management Suicide Risk Level Suicide Risk Level: High-Moderate (q15 min suicide checks) (significant overdose with cavalier disregard whether he lived or ; reports feeling safe here) Risk Factors Assessment Male: Yes : No Do You Have Access To A Gun?: No Health Problems: No Mental Health Diagnoses: Yes Substance Use Disorders: No Previous Attempt: No Family History of Suicide: No Previous Psychiatric Hospitalization: No Protective Factors Assessment : No Responsible for Young Children: No Supportive Family: Yes Interval History Identifying Information TAVO BRITTON is a 17-year-old M who currently lives in [place] with roommates, has a history of depression, and was admitted on 05/15/23 18:38 on a 201 voluntary commitment for overdose. Chief Complaint "I feel more comfortable". Review of Systems Sleep Information Total Hours of Sleep: 6.5 Sleep Comments: Pt requested PRN Vistaril at 0153 Meal Information Percent Meal Consumed - Breakfast: 100 Percent Meal Consumed - Lunch: 100 Percent Meal Consumed - Dinner: 100 Subjective Subjective The patient was seen and assessed and interval progress reviewed in a multidisciplinary team meeting with the treatment team. For details, see the "Impression" section. Overall I spent a total of 62 minutes for this inpatient follow-up including review of chart records, review of test results, direct evaluation of the patient [id number], counseling the patient, reconciling and ordering medication, medication education with the patient, risk assessment, discussion during interdisciplinary treatment rounds, and documentation in the electronic health record. Physical Exam Psychiatric Orientation: alert, oriented to person, oriented to place, oriented to time and cooperative Apperance: appropriately dressed, appropriately groomed and appeared stated age Eye Contact: + fair eye contact Motor Behavior: + psychomotor retardation Speech: normal rate/rhythm/volume of speech (uninflected) Affect: + blunted affect Mood: + depressed mood Thought Process: + tangential thought process and + concrete thought process Thought Content: + cognitive distortions, + hopelessness and + loneliness; no delusions Suicidal Thoughts: denies suicidal plan and denies suicidal intent; + reports suicidal thoughts Homicidal Thoughts: denies homicidal thoughts Hallucinations: no auditory hallucinations and no visual hallucinations Cognition: recent memory grossly intact, remote memory grossly intact, attention grossly intact and language grossly intact Estimated Intelligence: consistent with education level Insight: + limited insight Judgment: + impaired judgement Vital Signs (Past 24 Hours) Last Vital Signs Temp 36.5 C 05/17/23 06:28 Pulse 73 05/17/23 06:28 Resp 16 05/17/23 06:28 BP 112/71 05/17/23 06:28 Pulse Ox 98 05/16/23 06:46 O2 Del Method Room Air 05/16/23 06:46 Results & Data ([facility]) Laboratory Results Laboratory Results - last 24 hr 05/16/23 15:05 Vitamin B12 582 25-OH Vitamin D Total 26.6 Folate > 22.30 Current Inpatient Medications Current Inpatient Medications: Current Inpatient Medications Acetaminophen (Acetaminophen 325 Mg Tab) 650 mg PO Q4H PRN PRN Reason: Headache or Minor Fever Stop: 06/14/23 19:08 Al Hydrox/Mg Hydrox/Simethicone (Aluminum/Magnesium Susp 30 Ml Udc) 30 ml PO Q4H PRN PRN Reason: GI Upset Stop: 06/14/23 19:08 Bismuth Subsalicylate (Bismuth Subsalicylate Liqd 236 Ml) 15 ml PO PRN PRN PRN Reason: Loose Stool Stop: 06/14/23 19:08 Bupropion HCl (Bupropion Xl 150 Mg Tabcr) 150 mg PO QAM GOLD[place] Stop: 06/16/23 08:59 Last Admin: 05/17/23 08:41 Dose: 150 mg Hydroxyzine HCl (Hydroxyzine Hcl 25 Mg Tab) 50 mg PO HSZ PRN PRN Reason: Insomnia Stop: 06/14/23 19:08 Last Admin: 05/16/23 01:53 Dose: 50 mg Hydroxyzine HCl (Hydroxyzine Hcl 25 Mg Tab) 25 mg PO Q4H PRN PRN Reason: Anxiety Stop: 06/14/23 19:08 Magnesium Hydroxide (Magnesium Hydroxide Susp 30 Ml Udc) 30 ml PO DAILY PRN PRN Reason: Constipation Stop: 06/14/23 19:08 Sodium Chloride (Sodium Chloride 0.65% Na Soln 45 Ml ([place])) 1 - 2 sprays NA PRN PRN PRN Reason: Nasal Dryness/Congestion Stop: 06/14/23 19:08 Mental Health & Subst Abuse Tx Therapist Name of Therapist: [facility] Post Discharge Appointments Primary Care Physician Name Of Family Doctor/PCP: Georgette
[2023-05-17] MEDS ORDERED: DICLOFENAC SOD 1% GEL 100 GM TUBE EXT SCH ×2 (12:22→21:00)
[2023-05-17] MEDS ORDERED: NAPROXEN 375 MG TAB PO SCH (12:30)
[2023-05-17] MEDS: hydrOXYzine HCl 25 MG TAB PO PRN (23:34)
[2023-05-18] MEDS: buPROPion XL 300 MG TABCR PO SCH (08:57)
--- NOTE | 2023-05-18 13:50 | Psychiatric Progress Note ---
Date of Service May 18, 2023 Impression / Recommendations Impression 17 y/o M with a years-long history of depression symptoms for which he only recently sought outpatient treatment. He started escitalopram around the time the suicidal thoughts became more prominent and they escalated markedly when the dose was increased, so it's possible that medication may have contributed to the suicidality (which is a known risk of antidepressants in young adults). Pt has prominent melancholic symptoms with "flat" emotions, anhedonia, anergy, and amotivation. 05/18/2023: Slept "OK". Says he's feeling a bit less down. Today is the first time I've seen him smile. He is somewhat preoccupied with having been told typical stay here is "3 to 5 days" and that he's been here 3 days so wonders if he's considerably sicker than average because he hasn't been discharged yet. Discussed, among other things, the concept of ranges and of averages and of the limited applicability of estimates to individual circumstances. Reviewed discharge criteria. Tolerating increased bupropion dose of 300 mg daily with no reported side effects, so will continue this dose. 05/17/2023: After I completed my assessment note yesterday, I spent about an hour and a half on the phone with pt's parents, and discussed that call with him today. He expressed surprise that his parents had not expected his suicidal behavior, though he acknowledges he'd only told them about depressed mood and suicidal thoughts but never mentioned intent. They'd indicated symptoms dating back to about a year earlier than pt's report and he's adamant that "it's been 5 years" (though continues to say that he does not view moving to [place] from [facility] that year as a precipitant or contributor and can't identify any other). He acknowledges his mom's report that he weighs himself very often but says he "used to be overweight" and likes to track his weight. He denies having any specific target weight. He asks me if I think he's anxious (which he'd previously told me he's not) and struggled to explain why he would ask me that if he doesn't think he is. Pt has noted no side effects since starting bupropion (1st dose this AM), is somewhat uncertain about increasing tomorrow. When I told him it's entirely up to him and that there's no douglass to increase the dose, he immediately asked me to order 300 mg for tomorrow. Additional labs were noncontributory. 05/16/2023: Bupropion might be especially helpful via dopaminergic effects. Reviewed rationale for and alternatives to bupropion for depression. Discussion included but was not limited to risk of seizures with excessive doses and the importance of using means such as pill reminders to avoid double-dosing. (1) Major depressive disorder, single episode, severe without psychotic features: Plan 05/18/2023: * continue bupropion XL 300 mg QAM - increased 05/17/2023, started 05/16/2023 at 150 mg 05/17/2023: * increase bupropion XL to 300 mg QAM 05/16/2023: The patient was admitted to the [facility] ([facility]) on q15 minute checks (behavioral with suicide precautions) for safety.The patient will participate in group, recreational, and milieu therapies and will be offered additional individual and family sessions as clinically appropriate. * start bupropion XL 150 mg daily * In addition to the screening labs ordered in the ED, will order vitamin B12 level, folic acid level, 25-OH vitamin D level to rule out conditions more pertinent to psychiatric symptoms. Inventory Assets Strengths: has local supports, voluntary, good insight, intelligent, attending classes Needs: safety and stabilization, medication adjustment, additional coping skills, increased outpatient services, case management Suicide Risk Level Suicide Risk Level: High-Moderate (q15 min suicide checks) (significant overdose with cavalier disregard whether he lived or ; reports feeling safe here) Risk Factors Assessment Male: Yes : No Do You Have Access To A Gun?: No Health Problems: No Mental Health Diagnoses: Yes Substance Use Disorders: No Previous Attempt: No Family History of Suicide: No Previous Psychiatric Hospitalization: No Protective Factors Assessment : No Responsible for Young Children: No Supportive Family: Yes Interval History Identifying Information TAVO BRITTON is a 17-year-old M who currently lives in [place] with roommates, has a history of depression, and was admitted on 05/15/23 18:38 on a 201 voluntary commitment for overdose. Chief Complaint "A little better". Review of Systems Sleep Information Total Hours of Sleep: 4.5 Sleep Comments: Pt requested PRN Vistaril for sleep Meal Information Percent Meal Consumed - Breakfast: 100 Percent Meal Consumed - Lunch: 100 Percent Meal Consumed - Dinner: 100 Subjective Subjective The patient was seen and assessed and interval progress reviewed in a multidisciplinary team meeting with the treatment team. For details, see the "Impression" section. Overall I spent a total of 50 minutes for this inpatient follow-up including review of chart records, direct evaluation of the patient [id number], counseling the patient, medication education with the patient, risk assessment, discussion during interdisciplinary treatment rounds, and documentation in the electronic health record. Physical Exam Psychiatric Orientation: alert, oriented to person, oriented to place, oriented to time and cooperative Apperance: appropriately dressed, appropriately groomed and appeared stated age Eye Contact: + fair eye contact Motor Behavior: + psychomotor retardation Speech: normal rate/rhythm/volume of speech (uninflected) Affect: + blunted affect Mood: + depressed mood Thought Process: + tangential thought process and + concrete thought process Thought Content: + cognitive distortions, + hopelessness and + loneliness; no delusions Suicidal Thoughts: denies suicidal plan and denies suicidal intent; + reports suicidal thoughts Homicidal Thoughts: denies homicidal thoughts Hallucinations: no auditory hallucinations and no visual hallucinations Cognition: recent memory grossly intact, remote memory grossly intact, attention grossly intact and language grossly intact Estimated Intelligence: consistent with education level Insight: + limited insight Judgment: + impaired judgement Vital Signs (Past 24 Hours) Last Vital Signs Temp 36.6 C 05/18/23 06:32 Pulse 71 05/18/23 06:33 Resp 16 05/18/23 06:32 BP 102/71 05/18/23 06:33 Pulse Ox 98 05/16/23 06:46 O2 Del Method Room Air 05/16/23 06:46 Results & Data (U) Current Inpatient Medications Current Inpatient Medications: Current Inpatient Medications Acetaminophen (Acetaminophen 325 Mg Tab) 650 mg PO Q4H PRN PRN Reason: Headache or Minor Fever Stop: 06/14/23 19:08 Al Hydrox/Mg Hydrox/Simethicone (Aluminum/Magnesium Susp 30 Ml Udc) 30 ml PO Q4H PRN PRN Reason: GI Upset Stop: 06/14/23 19:08 Bismuth Subsalicylate (Bismuth Subsalicylate Liqd 236 Ml) 15 ml PO PRN PRN PRN Reason: Loose Stool Stop: 06/14/23 19:08 Bupropion HCl (Bupropion Xl 300 Mg Tabcr) 300 mg PO QAM GOLDIE Stop: 06/17/23 08:59 Last Admin: 05/18/23 08:57 Dose: 300 mg Hydroxyzine HCl (Hydroxyzine Hcl 25 Mg Tab) 50 mg PO HSZ PRN PRN Reason: Insomnia Stop: 06/14/23 19:08 Last Admin: 05/17/23 23:34 Dose: 50 mg Hydroxyzine HCl (Hydroxyzine Hcl 25 Mg Tab) 25 mg PO Q4H PRN PRN Reason: Anxiety Stop: 06/14/23 19:08 Magnesium Hydroxide (Magnesium Hydroxide Susp 30 Ml Udc) 30 ml PO DAILY PRN PRN Reason: Constipation Stop: 06/14/23 19:08 Sodium Chloride (Sodium Chloride 0.65% Na Soln 45 Ml ([place])) 1 - 2 sprays NA PRN PRN PRN Reason: Nasal Dryness/Congestion Stop: 06/14/23 19:08 Mental Health & Subst Abuse Tx Therapist Name of Therapist: [facility] Post Discharge Appointments Primary Care Physician Name Of Family Doctor/PCP: Georgette
[2023-05-18] MEDS: hydrOXYzine HCl 25 MG TAB PO PRN (22:51)
[2023-05-19] MEDS: buPROPion XL 300 MG TABCR PO SCH (09:17)
--- NOTE | 2023-05-19 10:34 | Psychiatric Progress Note ---
Date of Service May 19, 2023 Impression / Recommendations Impression 17 y/o M with a years-long history of depression symptoms for which he only recently sought outpatient treatment. He started escitalopram around the time the suicidal thoughts became more prominent and they escalated markedly when the dose was increased, so it's possible that medication may have contributed to the suicidality (which is a known risk of antidepressants in young adults). Pt has prominent melancholic symptoms with "flat" emotions, anhedonia, anergy, and amotivation. 05/19/2023: Says he slept "almost OK" last night, does not feel rested. Nurses documented 6.25 hours. Pt had a total of 75 mg hydroxyzine which he thinks was "almost enough". Discussed option of increasing to 100 mg. Affect continues to improve, though remains stilted. Pt has begun to speak of longstanding feeling that he "can't connect" emotionally the way others do. Treatment team have begun to wonder whether he may have Sx of ASD. Yet again brings up "3 to 5 days" from his treatment plan. Continues to tolerate bupropion 300 mg with no evidence of adverse effects. 05/18/2023: Slept "OK". Says he's feeling a bit less down. Today is the first time I've seen him smile. He is somewhat preoccupied with having been told typical stay here is "3 to 5 days" and that he's been here 3 days so wonders if he's considerably sicker than average because he hasn't been discharged yet. Discussed, among other things, the concept of ranges and of averages and of the limited applicability of estimates to individual circumstances. Reviewed discharge criteria. Tolerating increased bupropion dose of 300 mg daily with no reported side effects, so will continue this dose. 05/17/2023: After I completed my assessment note yesterday, I spent about an hour and a half on the phone with pt's parents, and discussed that call with him today. He expressed surprise that his parents had not expected his suicidal behavior, though he acknowledges he'd only told them about depressed mood and suicidal thoughts but never mentioned intent. They'd indicated symptoms dating back to about a year earlier than pt's report and he's adamant that "it's been 5 years" (though continues to say that he does not view moving to [place] from [place] that year as a precipitant or contributor and can't identify any other). He acknowledges his mom's report that he weighs himself very often but says he "used to be overweight" and likes to track his weight. He denies having any specific target weight. He asks me if I think he's anxious (which he'd previously told me he's not) and struggled to explain why he would ask me that if he doesn't think he is. Pt has noted no side effects since starting bupropion (1st dose this AM), is somewhat uncertain about increasing tomorrow. When I told him it's entirely up to him and that there's no douglass to increase the dose, he immediately asked me to order 300 mg for tomorrow. Additional labs were noncontributory. 05/16/2023: Bupropion might be especially helpful via dopaminergic effects. Reviewed rationale for and alternatives to bupropion for depression. Discussion included but was not limited to risk of seizures with excessive doses and the importance of using means such as pill reminders to avoid double-dosing. (1) Major depressive disorder, single episode, severe without psychotic features: Plan 05/19/2023: * continue bupropion XL 300 mg QAM - increased 05/17/2023, started 05/16/2023 at 150 mg * increase hydroxyzine to 100 mg QHS, change to scheduled from PRN 05/18/2023: * continue bupropion XL 300 mg QAM - increased 05/17/2023, started 05/16/2023 at 150 mg 05/17/2023: * increase bupropion XL to 300 mg QAM 05/16/2023: The patient was admitted to the [facility] ([facility] mental health unit) on q15 minute checks (behavioral with suicide precautions) for safety.The patient will participate in group, recreational, and milieu therapies and will be offered additional individual and family sessions as clinically appropriate. * start bupropion XL 150 mg daily * In addition to the screening labs ordered in the ED, will order vitamin B12 level, folic acid level, 25-OH vitamin D level to rule out conditions more pertinent to psychiatric symptoms. Inventory Assets Strengths: has local supports, voluntary, good insight, intelligent, attending classes Needs: safety and stabilization, medication adjustment, additional coping skills, increased outpatient services, case management Suicide Risk Level Suicide Risk Level: High-Moderate (q15 min suicide checks) (significant overdose with cavalier disregard whether he lived or ; reports feeling safe here) Risk Factors Assessment Male: Yes : No Do You Have Access To A Gun?: No Health Problems: No Mental Health Diagnoses: Yes Substance Use Disorders: No Previous Attempt: No Family History of Suicide: No Previous Psychiatric Hospitalization: No Protective Factors Assessment : No Responsible for Young Children: No Supportive Family: Yes Interval History Identifying Information TAVO BRITTON is a 17-year-old M who currently lives in [place] with roommates, has a history of depression, and was admitted on 05/15/23 18:38 on a 201 voluntary commitment for overdose. Chief Complaint "Not too bad". Review of Systems Sleep Information Total Hours of Sleep: 6.25 Sleep Comments: Pt requested PRN Vistaril for sleep Meal Information Percent Meal Consumed - Breakfast: 100 Percent Meal Consumed - Lunch: 100 Percent Meal Consumed - Dinner: 100 Subjective Subjective The patient was seen and assessed and interval progress reviewed in a multidisciplinary team meeting with the treatment team. For details, see the "Impression" section. Overall I spent a total of 49 minutes for this inpatient follow-up including review of chart records, direct evaluation of the patient [id number], counseling the patient, reconciling and ordering medication, medication education with the patient, risk assessment, discussion during interdisciplinary treatment rounds, and documentation in the electronic health record. Physical Exam Psychiatric Orientation: alert, oriented to person, oriented to place, oriented to time and cooperative Apperance: appropriately dressed, appropriately groomed and appeared stated age Eye Contact: + fair eye contact Motor Behavior: + psychomotor retardation Speech: normal rate/rhythm/volume of speech (uninflected) Affect: + blunted affect Mood: + depressed mood Thought Process: + tangential thought process and + concrete thought process Thought Content: + cognitive distortions, + hopelessness and + loneliness; no delusions Suicidal Thoughts: denies suicidal plan and denies suicidal intent; + reports suicidal thoughts Homicidal Thoughts: denies homicidal thoughts Hallucinations: no auditory hallucinations and no visual hallucinations Cognition: recent memory grossly intact, remote memory grossly intact, attention grossly intact and language grossly intact Estimated Intelligence: consistent with education level Insight: + limited insight Judgment: + impaired judgement Vital Signs (Past 24 Hours) Last Vital Signs Temp 36.8 C 05/19/23 06:00 Pulse 69 05/19/23 07:03 Resp 16 05/19/23 06:00 BP 100/76 05/19/23 07:03 Pulse Ox 98 05/16/23 06:46 O2 Del Method Room Air 05/16/23 06:46 Results & Data ([facility]) Current Inpatient Medications Current Inpatient Medications: Current Inpatient Medications Acetaminophen (Acetaminophen 325 Mg Tab) 650 mg PO Q4H PRN PRN Reason: Headache or Minor Fever Stop: 06/14/23 19:08 Al Hydrox/Mg Hydrox/Simethicone (Aluminum/Magnesium Susp 30 Ml Udc) 30 ml PO Q4H PRN PRN Reason: GI Upset Stop: 06/14/23 19:08 Bismuth Subsalicylate (Bismuth Subsalicylate Liqd 236 Ml) 15 ml PO PRN PRN PRN Reason: Loose Stool Stop: 06/14/23 19:08 Bupropion HCl (Bupropion Xl 300 Mg Tabcr) 300 mg PO QAM GOLDIE Stop: 06/17/23 08:59 Last Admin: 05/19/23 09:17 Dose: 300 mg Hydroxyzine HCl (Hydroxyzine Hcl 25 Mg Tab) 50 mg PO HSZ PRN PRN Reason: Insomnia Stop: 06/14/23 19:08 Last Admin: 05/18/23 22:51 Dose: 50 mg Hydroxyzine HCl (Hydroxyzine Hcl 25 Mg Tab) 25 mg PO Q4H PRN PRN Reason: Anxiety Stop: 06/14/23 19:08 Magnesium Hydroxide (Magnesium Hydroxide Susp 30 Ml Udc) 30 ml PO DAILY PRN PRN Reason: Constipation Stop: 06/14/23 19:08 Sodium Chloride (Sodium Chloride 0.65% Na Soln 45 Ml ([place])) 1 - 2 sprays NA PRN PRN PRN Reason: Nasal Dryness/Congestion Stop: 06/14/23 19:08 Mental Health & Subst Abuse Tx Therapist Name of Therapist: Lisa Morel Therapist's Date of Therapist Appointment: 07/04/23 Time of Therapist Appointment: arrive at 10:30 AM Therapy Appointment Comment: [address], [place] [address] Post Discharge Appointments Primary Care Physician Name Of Family Doctor/PCP: MAREN
[2023-05-19] MEDS ORDERED: hydrOXYzine HCl 25 MG TAB PO PRN (14:04)
--- NOTE | 2023-05-20 09:29 | Psychiatric Progress Note ---
Date of Service May 20, 2023 Impression / Recommendations Impression 17 y/o M with a years-long history of depression symptoms for which he only recently sought outpatient treatment. He started escitalopram around the time the suicidal thoughts became more prominent and they escalated markedly when the dose was increased, so it's possible that medication may have contributed to the suicidality (which is a known risk of antidepressants in young adults). Pt has prominent melancholic symptoms with "flat" emotions, anhedonia, anergy, and amotivation. 05/20/2023: Slept ??? last night with increased hydroxyzine. 05/19/2023: Says he slept "almost OK" last night, does not feel rested. Nurses documented 6.25 hours. Pt had a total of 75 mg hydroxyzine which he thinks was "almost enough". Discussed option of increasing to 100 mg. Affect continues to improve, though remains stilted. Pt has begun to speak of longstanding feeling that he "can't connect" emotionally the way others do. Treatment team have begun to wonder whether he may have Sx of ASD. Yet again brings up "3 to 5 days" from his treatment plan. Continues to tolerate bupropion 300 mg with no evidence of adverse effects. 05/18/2023: Slept "OK". Says he's feeling a bit less down. Today is the first time I've seen him smile. He is somewhat preoccupied with having been told typical stay here is "3 to 5 days" and that he's been here 3 days so wonders if he's considerably sicker than average because he hasn't been discharged yet. Discussed, among other things, the concept of ranges and of averages and of the limited applicability of estimates to individual circumstances. Reviewed discharge criteria. Tolerating increased bupropion dose of 300 mg daily with no reported side effects, so will continue this dose. 05/17/2023: After I completed my assessment note yesterday, I spent about an hour and a half on the phone with pt's parents, and discussed that call with him today. He expressed surprise that his parents had not expected his suicidal behavior, though he acknowledges he'd only told them about depressed mood and suicidal thoughts but never mentioned intent. They'd indicated symptoms dating back to about a year earlier than pt's report and he's adamant that "it's been 5 years" (though continues to say that he does not view moving to [place] from [place] that year as a precipitant or contributor and can't identify any other). He acknowledges his mom's report that he weighs himself very often but says he "used to be overweight" and likes to track his weight. He denies having any specific target weight. He asks me if I think he's anxious (which he'd previously told me he's not) and struggled to explain why he would ask me that if he doesn't think he is. Pt has noted no side effects since starting bupropion (1st dose this AM), is somewhat uncertain about increasing tomorrow. When I told him it's entirely up to him and that there's no douglass to increase the dose, he immediately asked me to order 300 mg for tomorrow. Additional labs were noncontributory. 05/16/2023: Bupropion might be especially helpful via dopaminergic effects. Reviewed rationale for and alternatives to bupropion for depression. Discussion included but was not limited to risk of seizures with excessive doses and the importance of using means such as pill reminders to avoid double-dosing. (1) Major depressive disorder, single episode, severe without psychotic features: Plan 05/20/2023: 05/19/2023: * continue bupropion XL 300 mg QAM - increased 05/17/2023, started 05/16/2023 at 150 mg * increase hydroxyzine to 100 mg QHS, change to scheduled from PRN 05/18/2023: * continue bupropion XL 300 mg QAM - increased 05/17/2023, started 05/16/2023 at 150 mg 05/17/2023: * increase bupropion XL to 300 mg QAM 05/16/2023: The patient was admitted to the [facility] ([facility] inpatient mental health unit) on q15 minute checks (behavioral with suicide precautions) for safety.The patient will participate in group, recreational, and milieu therapies and will be offered additional individual and family sessions as clinically appropriate. * start bupropion XL 150 mg daily * In addition to the screening labs ordered in the ED, will order vitamin B12 level, folic acid level, 25-OH vitamin D level to rule out conditions more pertinent to psychiatric symptoms. Inventory Assets Strengths: has local supports, voluntary, good insight, intelligent, attending classes Needs: safety and stabilization, medication adjustment, additional coping skills, increased outpatient services, case management Suicide Risk Level Suicide Risk Level: High-Moderate (q15 min suicide checks) (significant overdose with cavalier disregard whether he lived or ; reports feeling safe here) Risk Factors Assessment Male: Yes : No Do You Have Access To A Gun?: No Health Problems: No Mental Health Diagnoses: Yes Substance Use Disorders: No Previous Attempt: No Family History of Suicide: No Previous Psychiatric Hospitalization: No Protective Factors Assessment : No Responsible for Young Children: No Supportive Family: Yes Interval History Identifying Information TAVO BRITTON is a 17-year-old M who currently lives in [place] with roommates, has a history of depression, and was admitted on 05/15/23 18:38 on a 201 voluntary commitment for overdose. Chief Complaint "[]". Review of Systems Sleep Information Total Hours of Sleep: 6.75 Sleep Comments: Pt requested PRN Vistaril for sleep Meal Information Percent Meal Consumed - Breakfast: 100 Percent Meal Consumed - Lunch: 100 Percent Meal Consumed - Dinner: 100 Subjective Subjective The patient was seen and assessed and interval progress reviewed in a multidisciplinary team meeting with [the treatment team][psychiatric liaison ][nursing and social work]. For details, see the "Impression" section. Overall I spent a total of [] minutes for this [inpatient follow- up][consultation follow-up] including [review of chart records, ][review of test results, ][direct evaluation of the patient [id number], ][counseling the patient, ][reconciling and ordering medication, ][medication education with the patient, ][risk assessment], discussion [during interdisciplinary treatment rounds][with the psychiatric liaison nurse], [testifying at the patient's commitment hearing, ]and documentation in the electronic health record. Physical Exam Psychiatric Orientation: alert, oriented to person, oriented to place, oriented to time and cooperative Apperance: appropriately dressed, appropriately groomed and appeared stated age Eye Contact: + fair eye contact Motor Behavior: + psychomotor retardation Speech: normal rate/rhythm/volume of speech (uninflected) Affect: + blunted affect Mood: + depressed mood Thought Process: + tangential thought process and + concrete thought process Thought Content: + cognitive distortions and + loneliness; no delusions and no hopelessness Suicidal Thoughts: denies suicidal plan and denies suicidal intent; + reports suicidal thoughts Homicidal Thoughts: denies homicidal thoughts Hallucinations: no auditory hallucinations and no visual hallucinations Cognition: recent memory grossly intact, remote memory grossly intact, attention grossly intact and language grossly intact Estimated Intelligence: consistent with education level Insight: + limited insight Judgment: + impaired judgement Vital Signs (Past 24 Hours) Last Vital Signs Temp 36.8 C 05/20/23 06:00 Pulse 68 05/20/23 06:53 Resp 14 05/20/23 06:00 BP 123/88 05/20/23 06:53 Pulse Ox 96 05/20/23 06:00 O2 Del Method Room Air 05/20/23 06:00 Results & Data ([facility]) Current Inpatient Medications Current Inpatient Medications: Current Inpatient Medications Acetaminophen (Acetaminophen 325 Mg Tab) 650 mg PO Q4H PRN PRN Reason: Headache or Minor Fever Stop: 06/14/23 19:08 Al Hydrox/Mg Hydrox/Simethicone (Aluminum/Magnesium Susp 30 Ml Udc) 30 ml PO Q4H PRN PRN Reason: GI Upset Stop: 06/14/23 19:08 Bismuth Subsalicylate (Bismuth Subsalicylate Liqd 236 Ml) 15 ml PO PRN PRN PRN Reason: Loose Stool Stop: 06/14/23 19:08 Bupropion HCl (Bupropion Xl 300 Mg Tabcr) 300 mg PO QAM GOLDIE Stop: 06/17/23 08:59 Last Admin: 05/19/23 09:17 Dose: 300 mg Hydroxyzine HCl (Hydroxyzine Hcl 25 Mg Tab) 25 mg PO Q4H PRN PRN Reason: Anxiety Stop: 06/14/23 19:08 Hydroxyzine HCl (Hydroxyzine Hcl 25 Mg Tab) 100 mg PO HSZ PRN PRN Reason: Insomnia Stop: 06/14/23 19:08 Last Admin: 05/19/23 21:07 Dose: 100 mg Magnesium Hydroxide (Magnesium Hydroxide Susp 30 Ml Udc) 30 ml PO DAILY PRN PRN Reason: Constipation Stop: 06/14/23 19:08 Sodium Chloride (Sodium Chloride 0.65% Na Soln 45 Ml ([place])) 1 - 2 sprays NA PRN PRN PRN Reason: Nasal Dryness/Congestion Stop: 06/14/23 19:08 Mental Health & Subst Abuse Tx Psychiatrist Name of Psychiatrist: Marin Singh Psychiatrist's Date Of Appointment With Psychiatric Provider: 06/10/22 Time of Appointment with Psychiatrist: 9:30 AM Psychiatric Appointment Comment: [address] [facility], [place] [address] Therapist Name of Therapist: [facility] Therapist's Date of Therapist Appointment: 07/04/23 Time of Therapist Appointment: arrive at 10:30 AM Therapy Appointment Comment: [address], [place] [address] [employer] Name of [employer]: [facility] Phone Number for [employer]: [phone] Case Management Appointment Comment: Please check [employer] email for Zoom link. Post Discharge Appointments Primary Care Physician Name Of Family Doctor/PCP: [facility] Time of Appointment with PCP: Please follow up with primary care provider as needed. Provider Appointment Comment: [facility], [place] [address]
[2023-05-20] MEDS: buPROPion XL 300 MG TABCR PO SCH (10:06)
[2023-05-20] MEDS ORDERED: DESTROY THIS MEDICATION ONE (10:57)
--- NOTE | 2023-05-20 11:41 | Discharge Summary ---
Date of Service May 20, 2023 History of Present Illness As part of a thorough review of the available medical records, I have read and confirmed the following note by the ED physician: "The patient is a 17-year-old male who presented to the emergency department for an evaluation of overdose and suicidal ideation with gesture. The patient states that he has been having suicidal ideation since yesterday. He took an overdose of his medication. The patient has a Lexapro at home. He has varying doses. He started at 4:15 PM and started taking 1 pill every minute. This ended at approximately 4:45 PM. The patient thinks he took a total of 30 tablets. This was calculated to be 425 mg total. Again the patient's last dose that he took was at 4:45 PM. The patient has had episodes of nausea vomiting. He called 911 and arrived at the emergency department with police. The patient states he has a history of cutting in the past but never anything this serious." the following note by the hospitalist: "The patient is a 17-year-old male with a past medical history of depression, who was brought to the emergency department after a suicide attempt where he took Lexapro 20 mg tablets, 1 every minute from 4:15 to 4:45 PM for total of 30 ingested. The patient's main complaint in the emergency department is stomach upset, and reports a few episodes of nausea and vomiting." the following notes by the ED psychiatric casey saw operator: "Radha arrives to the ED via EMS for intentional overdose. He arrives on a [address] warrant completed by Officer Chelsea Ward with [place] [employer]: "On 05/14/23 at approximately 1623 hours [facility] #[id number], [facility] and I responded to a call of a male that overdosed on medication for the purpose of killing himself. We found Radha Garcia Milling at the [facility] and he stated in my presence that he purposely took a substantial amount of his prescribed medication in an attempt to kill himself." "Radha admits to intentionally overdosing on his Lexapro today. Radha is prescribed this by a telehealth [facility]iana called [facility]. He was prescribed 10mg initially and took that for two weeks. His dosage was then increased to 20mg. His affect is flat. He cannot identify a specific trigger but states that he has been suicidal for at least the past five years. Four years ago, he had what he calls a "not significant" suicide attempt where he wrapped blankets around his neck. 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 He denies difficulties with his schooling. In that regard, he states, "It's kind of the opposite problem. I just don't feel anything." Radha lives on campus in a dorm with a roommate that he is not close to. He states his family lives locally in [email or web address]. Radha questioned this casey saw operator if he should call his family. He decided that he likely will call them and let them know that he is here. Radha denies A/V hallucinations, HI, SIB and alcohol/substance use. Medical clearance process explained, Radha does state that he is voluntary for inpatient psychiatric treatment if this is the recommendation s/p medical clearance." and the following note by the psychiatric liaison nurse: "Met with patient for consult service/initial psychiatric assessment. Patient resting in bed, parents and 1:1 staff at bedside. Parents stepped out of room while liaison completed assessment. Patient is A&Ox4, flat affect with good eye contact. Radha reports being born in [place], family moved to [place] 6 years ago for educational purposes and then again moved to [place], last year, to be closer to [facility]. 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 Patient reports a history of depression for the past 5 years. He feels he has become apathetic in the last 1-2 years. "My desire to live and my desire to are about the same. I don't really care either way". Patient reports attempting to suffocate self with a blanket 4 years ago; he reported this to parents ~1 year later during an argument. He denies SIB. He denies substance/ETOH use. He recently began telehealth with a provider through [facility] , Dr. Osborne and was started on Lexapro "3 weeks ago", dose was increased last week. Patient utilized individual therapy through [facility] for 6 sessions and then was placed in a group that meets once per week; group will restart in June. Patient reports he started to formulate a suicide plan on Tuesday, he chose a day and time. He reported reading that 800mg could be a deadly dose. He states, "I had 47 tablets and did not want it to be impulsive, so I took 1 tablet every minute to essentially give my self 47 chances to not kill my self. I had my phone beside me with 911 ready to be called. I only got to 30 tablets because I wasn't feeling any different", he then called parents after calling 911. Patient displayed poor insight into his overdose/suicide attempt, denies any stressors or triggers, he also feels he wouldn't need inpatient treatment but agreeable if it is recommended. " Review of the medical record reveals no records prior to his presentation in the ED. Review of pertinent labs reveals they are noncontributory. A urine toxicology screen was negative for all tested substrates. BAL was <10 mg/dL. Pt endorses history, as above, of roughly 5-year history of depressed mood with chronic suicidal thoughts and a very deliberate escitalopram overdose during he took one tablet per minute specifically to reduce the risk of vomiting the medication and not absorbing it as well as to provide opportunities for him to abort the attempt (which he did not do). Despite this, he has minimized reasons that others are concerned about his safety. He doesn't believe he needs psychiatric hospitalization but has been willing to agree to it. He endorses significant depression symptoms including initial and middle insomnia, reduced appetite, poor energy, reduced interest and motivation, trouble concentrating and focusing as well as increasing suicidal thoughts. He is unable to identify any precipitant. He denies much in the way of anxiety symptoms or any symptoms typical of hi. Physical Exam Psychiatric Orientation: alert, oriented to person, oriented to place, oriented to time and cooperative Apperance: appropriately dressed, appropriately groomed and appeared stated age Eye Contact: + fair eye contact Motor Behavior: + psychomotor retardation Speech: normal rate/rhythm/volume of speech (uninflected) Affect: + blunted affect Mood: + depressed mood Thought Process: + tangential thought process and + concrete thought process Thought Content: + cognitive distortions, + hopelessness and + loneliness; no delusions Suicidal Thoughts: denies suicidal plan and denies suicidal intent; + reports suicidal thoughts Homicidal Thoughts: denies homicidal thoughts Hallucinations: no auditory hallucinations and no visual hallucinations Cognition: recent memory grossly intact, remote memory grossly intact, attention grossly intact and language grossly intact Estimated Intelligence: consistent with education level Insight: + limited insight Judgment: + impaired judgement Vital Signs (Past 24 Hours) Last Vital Signs Temp 36.8 C 05/20/23 11:15 Pulse 69 05/20/23 11:15 Resp 14 05/20/23 11:15 BP 100/76 05/20/23 11:15 Pulse Ox 96 05/20/23 11:15 O2 Del Method Room Air 05/20/23 06:00 See admission H&P and DOD assessment. Principal Diagnosis Major Depressive Disorder, Single Episode, Severe, without Psychotic Features Psychiatric Data See daily stay summary. In short, safety was maintained and the patient was cooperative with care. Medication changes included initiation of bupropion and titration to 300 mg daily and they tolerated this well. A family session was [held] and safety plan was completed prior to discharge. 05/19/2023: Says he slept "almost OK" last night, does not feel rested. Nurses documented 6.25 hours. Pt had a total of 75 mg hydroxyzine which he thinks was "almost enough". Discussed option of increasing to 100 mg. Affect continues to improve, though remains stilted. Pt has begun to speak of longstanding feeling that he "can't connect" emotionally the way others do. Treatment team have begun to wonder whether he may have Sx of ASD. Yet again brings up "3 to 5 days" from his treatment plan. Continues to tolerate bupropion 300 mg with no evidence of adverse effects. 05/18/2023: Slept "OK". Says he's feeling a bit less down. Today is the first time I've seen him smile. He is somewhat preoccupied with having been told typical stay here is "3 to 5 days" and that he's been here 3 days so wonders if he's considerably sicker than average because he hasn't been discharged yet. Discussed, among other things, the concept of ranges and of averages and of the limited applicability of estimates to individual circumstances. Reviewed discharge criteria. Tolerating increased bupropion dose of 300 mg daily with no reported side effects, so will continue this dose. 05/17/2023: After I completed my assessment note yesterday, I spent about an hour and a half on the phone with pt's parents, and discussed that call with him today. He expressed surprise that his parents had not expected his suicidal behavior, though he acknowledges he'd only told them about depressed mood and suicidal thoughts but never mentioned intent. They'd indicated symptoms dating back to about a year earlier than pt's report and he's adamant that "it's been 5 years" (though continues to say that he does not view moving to [place] from [place] that year as a precipitant or contributor and can't identify any other). He acknowledges his mom's report that he weighs himself very often but says he "used to be overweight" and likes to track his weight. He denies having any spec [facility] target weight. He asks me if I think he's anxious (which he'd previously told me he's not) and struggled to explain why he would ask me that if he doesn't think he is. Pt has noted no side effects since starting bupropion (1st dose this AM), is somewhat uncertain about increasing tomorrow. When I told him it's entirely up to him and that there's no douglass to increase the dose, he immediately asked me to order 300 mg for tomorrow. Additional labs were noncontributory. 05/16/2023: Bupropion might be especially helpful via dopaminergic effects. Reviewed rationale for and alternatives to bupropion for depression. Discussion included but was not limited to risk of seizures with excessive doses and the importance of using means such as pill reminders to avoid double-dosing. Day of Discharge Assessment Today the patient voices readiness for discharge. They note improvement in mood and deny thoughts to harm self or others. Thoughts remain organized and they are improved from admission. There is no evidence of psychosis. They agree to take mediations as prescribed and keep follow-up appointments. They are stable for discharge to outpatient level of care. Overall I spent a total of 32 minutes on the floor for this discharge including review of chart records, review of test results, direct evaluation of the patient [id number], counseling the patient, reconciling and ordering medication, medication education with the patient, risk assessment, discussion during interdisciplinary treatment rounds, and documentation in the electronic health record. Transition of Care Transition Of Care Record: was reviewed with the patient Advance Directives Advance Directives Information Provided: Yes Advance Directives: No Mental Health Advance Directive: No Advance Directives on File: No Living Will: No Power of Water Fabricator Operator: No Advance Directives Reason:: Declines as Mental Health Visit. Suicide Risk Level Suicide Risk Level Comments: Suicide risk at discharge is deemed low as the patient is no longer requiring 24-hr monitoring, has a safety plan, and is free of suicidal ideation at discharge. Risk Factors Assessment Male: Yes : No Do You Have Access To A Gun?: No Health Problems: No Mental Health Diagnoses: Yes Substance Use Disorders: No Previous Attempt: No Family History of Suicide: No Previous Psychiatric Hospitalization: No Protective Factors Assessment : No Responsible for Young Children: No Supportive Family: Yes Tobacco Cessation at Discharge Tobacco Cessation Medication Prescribed at Discharge: Not Applicable/Non-Smoker Total Time Total Time Spent: Greater Than 30 Minutes (32) Total Time Includes: Examination of the patient, Discharge Planning, Medication Reconciliation and As well as (documentation) Discharge Data Lab Results 05/16/23 15:05 Vitamin B12 582 25-OH Vitamin D Total 26.6 Folate > 22.30 Hospital Course (1) Major depressive disorder, single episode, severe without psychotic features: Plan 05/19/2023: * continue bupropion XL 300 mg QAM - increased 05/17/2023, started 05/16/2023 at 150 mg * increase hydroxyzine to 100 mg QHS, change to scheduled from PRN 05/18/2023: * continue bupropion XL 300 mg QAM - increased 05/17/2023, started 05/16/2023 at 150 mg 05/17/2023: * increase bupropion XL to 300 mg QAM 05/16/2023: The patient was admitted to the [facility] ([facility] mental health unit) on q15 minute checks (behavioral with suicide precautions) for safety.The patient will participate in group, recreational, and milieu therapies and will be offered additional individual and family sessions as clinically appropriate. * start bupropion XL 150 mg daily * In addition to the screening labs ordered in the ED, will order vitamin B12 level, folic acid level, 25-OH vitamin D level to rule out conditions more pertinent to psychiatric symptoms. Mental Health & Subst Abuse Tx Psychiatrist Name of Psychiatrist: Marin Singh Psychiatrist's Date Of Appointment With Psychiatric Provider: 06/10/22 Time of Appointment with Psychiatrist: 9:30 AM Psychiatric Appointment Comment: [address] [facility] [place] [address] Psychiatrist Release of Information: Obtained, Reviewed and Signed Therapist Name of Therapist: [facility]'s Date of Therapist Appointment: 07/04/23 Time of Therapist Appointment: arrive at 10:30 AM Therapy Appointment Comment: [address], [place] [address] Therapist Release of Information: Obtained, Reviewed and Signed Pay Agent Name of Pay Agent: [employer] Phone Number for Pay Agent: [phone] Date of Appointment with Pay Agent: 05/23/23 Time of Appointment with Pay Agent: 9am Case Management Appointment Comment: Please check [facility] email for Zoom link. Post Discharge Appointments Primary Care Physician Name Of Family Doctor/PCP: [facility] Time of Appointment with PCP: Please follow up with primary care provider as needed. Provider Appointment Comment: [place] [address] Smoking Cessation Counseling Tobacco Cessation Medication Prescribed at Discharge: Not Applicable/Non-Smoker Contact Information Discharge Discharge [address]: [address] [place] [id number] Discharge Plan Discharge Items Patient Disposition: Home - Self-Care Reason For Visit: MDD Discharge Diagnosis: Major Depressive Disorder, Recurrent, Severe, without Psychotic Features Activity: Resume your previous activity Non-emergency contact: Primary Care Provider and Psychiatrist Call non-emergency contact if: you have any medication questions and your symptoms worsen Follow-up/Referrals: PCP,NO [Primary Care Provider] - Diet: Regular Addtl Attending Provider Instructions: SPECIAL CARE INSTRUCTIONS: 1. Follow through with your scheduled aftercare appointments. If unable to keep an appointment, please call to reschedule. 2. Take your medication only as prescribed. Medication should not be changed or stopped without the approval of your doctor. In the event of worsening symptoms or concerns about side effects, contact your doctor immediately. 3. Utilize new healthy coping skills, anger management skills, and stress management skills learned during your hospitalization. Journal feelings and process them with a support person. Identify stressors or situations that may result in relapse, deterioration or inappropriate behaviors and develop a plan to deal with those issues. 4. If your coping skills are ineffective and you are in crisis, contact your outpatient providers for direction. If unable to reach your providers, please call the [facility] CRISIS LINE AT , go to the [facility] walk-in center at [address], [address], [place], or go to the closest Emergency Room. 5. Avoid alcohol and un-prescribed drugs. 6. You have been provided with the Mental Health Advance Directives Pamphlet for your review. 7. Your condition is stable for discharge to outpatient level of care, but recovery is an ongoing process. Ifthoughts to harm yourself or others return, follow the safety plan developed during your stay. Planning for a safe return home includes securing weapons. Our treatment team recommends weaponsbe removed from the home until your outpatient provider reassesses your progress. In rare cases where the items themselvescannot be removed, guns and ammunitionshould be secured separatelyand keys stored by a reliable personoutside of the home. If you were admitted on an involuntary commitment, the police or other legal authorities may be involved in this process. AFTERCARE APPOINTMENTS: * Please call your insurance company prior to your scheduled appointment to confirm your aftercare providers are covered. Take your insurance information to your appointments. WHO TO CALL AND WHEN: Medical Emergencies: For questions or emergencies related to your hospital stay, please contact the Inpatient Behavioral Health Unit at [phone]. A behavioral health clinician is on-call 27/12 for the Behavioral Health Unit for emergencies At any time you feel your situation is an emergency, you may also call 911 immediately. Pending Studies at Discharge: No Stand-Alone Forms: [facility] Medications and DC Order Prescriptions: New bupropion HCl 300 mg Tablet Extended Release 24 Hr 300 mg PO QAM 30 Days Qty: 30 0RF Discharge Orders: Discharge Order (Routine); Ordered 05/20/23 Ordered By: Andriy Waterman Admission Data Admit Date/Time: 05/15/23 18:38 Attending Provider: Andriy Waterman Admit Provider: Andriy Waterman Primary Care Provider: PCP,NO Other Interventions: Discharge Summary Assessment (RN) Last Done: 05/20/23 11:15 PSY Interdisciplinary Discharge Planning Last Done: 05/20/23 11:16 Coding Level of Care Code 08241 D/C day mgmt > 30 min Diagnoses Major depressive disorder, single episode, severe without psychotic features F32.2 Time Spent (min) 32
== END 2023-05-20 12:23 | disposition home or self-care (01) | DRG 885 ==
LOC: 3S 18:38